=== PATIENT | female | born 1950 | race Caucasian/White ===

== ENCOUNTER 2020-12-18 11:46 | Emergency (ER) | payer MEDICARE, OTHER, SELFPAY ==
[2020-12-18 11:55] VITALS: BP 119/78; PULSE 81; RESP 18; TEMP 36.6; O2SAT 98; BMI 23.6
--- NOTE | 2020-12-18 12:07 | W.ED.HA ---
HPI - Headache General: Chief Complaint: Headache Stated Complaint: DAVILA, Stomach Ache, Slurred Speech Time Seen by Provider: 12/18/20 12:06 History of Present Illness: HPI Narrative: 70-year-old female with history of Parkinson-like disease according to presents due to headache. States that headache started this morning. States it is achy and diffuse. No neck pain. Denies any seizure-like activity. does report since last night she has had slurred speech. She denies any alcohol or drug use. Denies any focal numbness weakness tingling vision change hearing change or vertigo. states that her last normal speech time was around 10 PM. Denies any blood thinner use. Review of Systems Narrative: - CONSTITUTIONAL: Denies weight loss, fever and chills. - HEENT: Denies changes in vision and hearing. - RESPIRATORY: Denies SOB and cough. - CV: Denies palpitations and CP. - GI: Denies abdominal pain, nausea, vomiting and diarrhea. - : Denies dysuria and urinary frequency. - MSK: Denies myalgia and joint pain. - SKIN: Denies rash and pruritus. - NEUROLOGICAL: As above. - PSYCHIATRIC: Denies suicidal ideation Physical Exam Narrative: EXAM NARRATIVE: - GENERAL: Alert and oriented x 3. No acute distress. Well-nourished. - EYES: EOMI. Anicteric. - HENT: Atraumatic, no C-spine tenderness. Moist mucous membranes. No scleral icterus. No cervical lymphadenopathy. - LUNGS: Clear to auscultation bilaterally. No accessory muscle use. Equal lung sounds bilaterally. No respiratory distress. - CARDIOVASCULAR: Regular rate and rhythm. No murmur. No JVD. - ABDOMEN: Soft, non-tender and non-distended. Negative CVA tenderness bilaterally, no rebound or guarding, negative Foote sign. No palpable masses. - EXTREMITIES: No edema. Non-tender. - SKIN: No rashes or lesions. Warm. - NEUROLOGIC: No meningismus, GCS 15, mild dysarthria, otherwise no focal deficit. - PSYCHIATRIC: Cooperative. Appropriate mood and affect. Course Vital Signs: Vital signs: Vital Signs Temperature 97.9 F 12/18/20 11:55 Pulse Rate 81 12/18/20 11:55 Respiratory Rate 18 12/18/20 11:55 Blood Pressure 119/78 12/18/20 11:55 Pulse Oximetry 98 12/18/20 11:55 MDM - Headache MDM Narrative: Medical decision making narrative: 70-year-old presents with a headache and dysarthria. Otherwise no focal neurologic deficit identified. Patient is hemodynamically stable afebrile and nontoxic-appearing. 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 Discussed with neurologist, Dr. Rodríguez, this time recommends baby aspirin and Plavix and admission for MRI in the morning. Remainder of lab work and imaging reviewed. Discussed with hospitalist and they agreed patient would benefit from admission. Patient admitted in stable condition. Further evaluation management per hospitalist team. Lab Data: Labs: Lab Results 12/18/20 12/18/20 12/18/20 12:43 12:45 12:45 WBC 9.2 10^3/uL 10^3/ uL (4.0-10.0) RBC 4.38 10^6/uL 10^6 /uL (4.1-5.3) Hgb 13.6 g/dL g/dL (11.5-15.3) Hct 42.1 % % (37.0-47.0) MCV 96.1 fl fl (81-99) MCH 31.1 pg pg (28.0-34.0) MCHC 32.3 g/dL g/dL (30.0-36.0) RDW 14.1 % % (12.1-15.1) Plt Count 260 10^3/cmm 10^3 /cmm (130-400) MPV 10.4 fL fL (7.4-10.4) Neut % (Auto) 61.5 % % Lymph % (Auto) 24.2 % % Doddridge % (Auto) 9.9 % % Eos % (Auto) 2.3 % % Baso % (Auto) 0.9 % % Neut # (Auto) 5.64 10^3/uL 10^3 /uL (1.8-7.7) Lymph # (Auto) 2.2 10^3/uL 10^3/ uL (0.8-4.8) Dod[place]idge # (Auto) 0.9 10^3/uL 10^3/ uL (0.2-0.9) Eos # (Auto) 0.2 10^3/uL 10^3/ uL (0.0-0.8) Baso # (Auto) 0.1 10^3/uL 10^3/ uL (0.0-0.1) Nucleated RBC % (a uto) 0 % % Nucleated RBCs # 0.0 /100WBC /100W BC PT 12.70 SECONDS SEC ONDS (12.1-14.9) INR 0.93 (0.8-1.2) APTT 21.3 SECONDS L SE CONDS (23.9-36.7) Sodium Potassium Chloride Carbon Dioxide Anion Gap BUN Creatinine GFR Calculation Glucose POC Glucose 97 mg/dL mg/dL (70-110) Calculated Osmolal ity Calcium Total Bilirubin AST ALT Alkaline Phosphata se Total Protein Albumin Globulin Urine Color Urine Appearance Urine pH Ur Specific Gravit y Urine Protein Urine Glucose (UA) Urine Ketones Urine Blood Urine Nitrate Urine Bilirubin Urine Urobilinogen Ur Leukocyte Rossy ase Urine RBC Urine WBC Ur Squamous Epith Cells Amorphous Sediment Urine Bacteria Urine Opiates Scre en Ur Barbiturates Sc reen Ur Phencyclidine S crn Ur Amphetamines Sc reen U Benzodiazepines Scrn Urine Cocaine Scre en U Marijuana (THC) Screen Ethyl Alcohol 12/18/20 12/18/20 12/18/20 12:45 13:43 13:43 WBC RBC Hgb Hct MCV MCH MCHC RDW Plt Count MPV Neut % (Auto) Lymph % (Auto) Doddridge % (Auto) Eos % (Auto) Baso % (Auto) Neut # (Auto) Lymph # (Auto) Doddridge # (Auto) Eos # (Auto) Baso # (Auto) Nucleated RBC % (a uto) Nucleated RBCs # PT INR APTT Sodium 138 mmol/L mmol/L (136-145) Potassium 3.8 mmol/L mmol/L (3.5-5.1) Chloride 106 mmol/L mmol/L (98-107) Carbon Dioxide 22 mmol/L mmol/L (22-29) Anion Gap 13.8 (5-19) BUN 22 mg/dL mg/dL (8-23) Creatinine 0.6 mg/dL mg/dL (0.5-0.9) GFR Calculation Not Reportable Glucose 100 mg/dL mg/dL (65-115) POC Glucose Calculated Osmolal ity 289 mOsm/kg mOsm/ kg (285-295) Calcium 8.8 mg/dL mg/dL (8.5-10.5) Total Bilirubin 0.2 mg/dL mg/dL (0.15-1.2) AST 14 U/L U/L (0-32) ALT < 5 U/L U/L (0-33) Alkaline Phosphata se 76 IU/L IU/L (35-105) Total Protein 7.2 g/dL g/dL (6.6-8.7) Albumin 3.8 g/dL g/dL (3.5-5.2) Globulin 3.4 g/dL g/dL (1.3-4.6) Urine Color Straw (Yellow) Urine Appearance Clear (CLEAR) Urine pH 5 (5-7) Ur Specific Gravit y 1.020 (1.005-1.030) Urine Protein Neg (Negative) Urine Glucose (UA) Norm (Normal) Urine Ketones Negative (Negative) Urine Blood 2+ H (Negative) Urine Nitrate Negative (Negative) Urine Bilirubin Neg (Negative) Urine Urobilinogen Norm mg/dL mg/dL (Negative) Ur Leukocyte Rossy ase Negative (Negative) Urine RBC Rare /hpf /hpf (0-2) Urine WBC None /hpf /hpf (0-5) Ur Squamous Epith Cells None /hpf /hpf (0-5) Amorphous Sediment Not Reportable Urine Bacteria Trace /hpf /hpf (NONE) Urine Opiates Scre en Negative ng/mL ng /mL (Negative) Ur Barbiturates Sc reen Negative ng/mL ng /mL (Negative) Ur Phencyclidine S crn Negative ng/mL ng /mL (Negative) Ur Amphetamines Sc reen Negative ng/mL ng /mL (Negative) U Benzodiazepines Scrn Negative ng/mL ng /mL (Negative) Urine Cocaine Scre en Negative ng/mL ng /mL (Negative) U Marijuana (THC) Screen Negative ng/mL ng /mL (Negative) Ethyl Alcohol < 10 mg/dL mg/dL (0-10) EKG Data^: EKG 1: Other EKG comments: Sinus rhythm with occasional PVC, possible LVH, no sign of acute ischemia or other acute abnormality. Discharge Plan Discharge Prescriptions: No Action levothyroxine 100 mcg Tablet 100 mcg PO QAM RF: 0 carbidopa-levodopa 25-100 mg Tablet 1 tab PO BID RF: 0 Coding Level of Care Code ED Vest Front Presser for Chg Chris
--- NOTE | 2020-12-18 12:11 | ECG_ITS ---
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 Measurements Intervals [place] Rate: 72 P: 37 SD: 167 QRS: -30 QRSD: 80 T: -12 QT: 381 QTc: 418 Interpretive Statements SINUS RHYTHM WITH OCCASIONAL VENTRICULAR PREMATURE COMPLEXES LOW QRS VOLTAGE IN PRECORDIAL LEADS [QRS DEFLECTION < 1.0 mV IN CHEST LEADS] VOLTAGE CRITERIA FOR LVH [MEETS CRITERIA IN ONE OF: R(aVL), S(V1), R(V5), R(V5/V6)+S(V1)] POSSIBLE ANTERIOR MYOCARDIAL INFARCTION , PROBABLY OLD [30 ms Q WAVE IN V3/V4, OR R < 0.2 mV IN V4] Compared to ECG 06/17/2015 20:54:55 Ventricular premature complex(es) now present Myocardial infarct finding now present Electronically Signed On 12-18-2020 16:44:17 SPECIALTY DEVELOPMENT CONSULTANT by Barrington Ahumada M.D. [id number]
--- NOTE | 2020-12-18 12:11 | CT_ITS ---
WS: [id number] CT ANGIOGRAM CEREBRAL AND CAROTID ARTERIES HISTORY: cva TECHNIQUE: CT angiogram is performed of the carotid and cerebral arteries. During arterial injection imaging is obtained from the skull vertex to the aortic arch in 1.25 mm imaging. Coronal and sagittal reformats are submitted. Additional multi planar reformats of the carotid and cerebral arteries are submitted, MIP imaging also reviewed. NASCET criteria utilized. [facility] at least one of these dose optimization techniques: automated exposure control; mA and/or kV adjust ment per patient size (includes targeted exams where dose is matched to clinical indication); or iter ative reconstruction. CONTRAST: Omnipaque 350; 95 mL IV. DLP: 605.36 mGy.cm COMPARISON: 06/17/2015 Carotid Angiogram: Right carotid: Common carotid artery: Arises normally from the innominate artery. No significant plaque or stenosis. Internal carotid artery: Intimal thickening and a small noncalcified plaque at the bifurcation. No hi gh-grade stenosis. External carotid artery: Patent. Left carotid: Common carotid artery: Proximal LEFT common carotid artery is poorly visualized. This could be due to artifact from the contrast injection. Internal carotid artery: Small amount of plaque. No stenosis. External carotid artery: Patent. Right vertebral artery: Unremarkable. Left vertebral artery: Dominant. No stenosis. Again noted is an irregularity within the lumen of the vertebral artery at C6 which does appear to be a focal dissection which is similar to the prior exami nation with no progression. Subclavian arteries: No stenosis or significant abnormality. Upper thorax: Mild groundglass attenuation and motion artifact. Thyroid gland: Normal. Osseous structures: Unremarkable. CEREBRAL ANGIOGRAM: Intracranial vertebral arteries: LEFT vertebral artery is slightly greater caliber than the RIGHT. No obstruction. Basilar artery: No significant stenosis or occlusion. No aneurysm. Intracranial Internal carotid arteries: Moderate atherosclerotic plaque within the intracranial carot id arteries. No high-grade stenosis. Middle cerebral arteries: Normal. Anterior cerebral arteries and ACOM: Normal. Posterior cerebral arteries and PCOM's: Normal. Dural venous sinuses are normally enhancing. Mastoid air cells: Normal. Paranasal sinuses: Normal. Calvarium: Normal. CT/CT angio headneck* [id number] IMPRESSION: 1. No significant extra cranial carotid artery stenosis. 2. Moderate intracranial carotid artery atherosclerotic disease with no high-g rade stenosis. 3. 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 4. Poorly visualized proximal LEFT common carotid artery due to adjacent contr ast bolus.
--- NOTE | 2020-12-18 12:11 | CT_ITS ---
WS: [id number] CT HEAD NONCONTRAST HISTORY: Symptoms of Acute Stroke TECHNIQUE: Contiguous axial imaging performed through the brain in 2.5 mm imaging. Bone and soft tiss ue windows. Sagittal and coronal reformats reviewed. All CT scans at [facility] use at least one of these dose optimization techniques: automated exposure control; mA and/or kV adjustment per pa tient size (includes targeted exams where dose is matched to clinical indication); or iterative recon struction. DLP: 821.9 mGy.cm COMPARISON: None available. No acute intracranial hemorrhage, midline shift or mass effect. Mild atrophy and mild chronic microvascular ischemic disease. Small lacunar infarcts in the internal capsules bilaterally. No acute infarct. Ventricles: Normal size with no hydrocephalus. Paranasal sinuses: As visualized are clear. Mastoid air cells: Well pneumatized. Calvarium and scalp: Skull is intact with no soft tissue edema or swelling. CT/CT head wo con* [id number] IMPRESSION: 1. No acute intracranial hemorrhage or edema. 2. Mild atrophy and mild chronic microvascular ischemic disease with small lac unar infarcts.
[2020-12-18 12:46] LABS: Glucose Point of Care 97 mg/dL (70-110)
[2020-12-18 12:53] LABS: Basophils # 0.1 10^3/uL (0.0-0.1); Basophils % 0.9 %; Eosinophils # 0.2 10^3/uL (0.0-0.8); Eosinophils % 2.3 %; Hematocrit 42.1 % (37.0-47.0); Hemoglobin 13.6 g/dL (11.5-15.3); Lymphocytes # 2.2 10^3/uL (0.8-4.8); Lymphocytes % 24.2 %; Mean Corpuscular HGB Conc 32.3 g/dL (30.0-36.0); Mean Corpuscular Hemoglobin 31.1 pg (28.0-34.0); Mean Corpuscular Volume 96.1 fl (81-99); Mean Platelet Volume 10.4 fL (7.4-10.4); Monocytes # 0.9 10^3/uL (0.2-0.9); Monocytes % 9.9 %; Neutrophils # 5.64 10^3/uL (1.8-7.7); Neutrophils % 61.5 %; Nucleated Red Blood Cells % 0 %; Platelet Count 260 10^3/cmm (130-400); Red Blood Count 4.38 10^6/uL (4.1-5.3); Red Cell Distribution Width 14.1 % (12.1-15.1); White Blood Count 9.2 10^3/uL (4.0-10.0)
[2020-12-18 13:12] LABS: Alanine Aminotransferase < 5 U/L (0-33); Albumin Level 3.8 g/dL (3.5-5.2); Alcohol Level < 10 mg/dL (0-10); Alkaline Phosphatase 76 IU/L (35-105); Anion Gap 13.8 (5-19); Aspartate Amino Transferase 14 U/L (0-32); Blood Urea Nitrogen 22 mg/dL (8-23); Calcium 8.8 mg/dL (8.5-10.5); Carbon Dioxide 22 mmol/L (22-29); Chloride 106 mmol/L (98-107); Creatinine Clr Calc Pharmacy 51.5379; Globulin 3.4 g/dL (1.3-4.6); Glucose 100 mg/dL (65-115); Osmolality Calculated 289 mOsm/kg (285-295); Potassium 3.8 mmol/L (3.5-5.1); Sodium 138 mmol/L (136-145); Total Bilirubin 0.2 mg/dL (0.15-1.2); Total Protein 7.2 g/dL (6.6-8.7)
[2020-12-18] MEDS: iohexol 350 mg/mL 100 mL Btl IV (13:30)
[2020-12-18 13:47] LABS: INR 0.93 (0.8-1.2)
[2020-12-18 13:52] LABS: Partial Thromboplastin Time 21.3 SECONDS (23.9-36.7)
[2020-12-18 14:05] LABS: Amphetamines Screen Urine Negative (Negative); Barbiturates Screen Urine Negative (Negative); Benzodiazepines Screen Urine Negative (Negative); Cocaine Screen Urine Negative (Negative); Opiate Screen Urine Negative (Negative); PCP Screen Urine Negative (Negative); THC Screen Urine Negative (Negative)
[2020-12-18 14:06] LABS: Urine Appearance Clear (CLEAR); Urine Color Straw (Yellow); pH Urine 5 (5-7)
[2020-12-18 14:07] LABS: Add Urine Microscopic? YES; Bilirubin Urine Neg (Negative); Blood Urine 2+ (Negative); Glucose Urine UA Norm (Normal); Ketones Urine Negative (Negative); Leukocyte Esterase Urine Negative (Negative); Nitrate Urine Negative (Negative); Protein Urine Neg (Negative); Urobilinogen Urine Norm (Negative)
[2020-12-18 14:11] LABS: Add Urine Culture? No; Bacteria Urine TRACE /hpf; RBC Urine RARE /hpf (0-2)
--- NOTE | 2020-12-18 14:13 | PC.NURSE ---
pt to the bathroom with
--- NOTE | 2020-12-18 14:58 | PC.PHAR ---
pts verified pts medications-[facility] states they havent filled the carbidopa/levodopa hasnt been filled since 04/05/20 90d/s pts state pt is still taking-
== END 2020-12-18 16:06 | disposition left against medical advice (07) ==
PROVIDERS: Emergency Provider Emergency Medicine; PCP Internal Medicine
DX: R51.9 Headache, unspecified (principal); R47.1 Dysarthria and anarthria; Z53.29 Procedure and treatment not carried out because of patient's decision for other reasons
CPT/HCPCS: 36416; 70450; 70496; 70498; 80053; 80306; 80307; 81001; 82962; 85025; 85610; 85730; 93005; 99283; Q9967